=== PATIENT | female | born 1980 | race African-American/Black ===

== ENCOUNTER 2019-01-18 12:37 | Emergency (ER) | payer OTHER ==
[2019-01-18 13:00] VITALS: BMI 52.4
--- NOTE | 2019-01-18 13:25 | PDOC ---
History of Present Illness - General Chief Complaint: Vaginal Bleeding Stated Complaint: VAGINAL BLEEDING Time Seen by Provider: 01/18/19 13:16 History Source: Patient Past History - Past Medical History Allergies/Adverse Reactions: Allergies Allergy/AdvReac Type Severity Reaction Status Date / Time No Known Allergies Allergy Verified 01/18/19 13:00 Home Medications: Ambulatory Orders Ferrous Sulfate/Vit C/FA [Folitab 500 Caplet -] 1 each PO DAILY #30 tablet.er Ketorolac Tromethamine [Toradol] 10 mg PO BID PRN #8 tablet 07/23/16 COPD: No Diabetes: Yes HTN: Yes - Suicide/Smoking/Psychosocial Hx Smoking History: Never smoked Information on smoking cessation initiated: No Hx Alcohol Use: No Drug/Substance Use Hx: No Substance Use Type: None Review of Systems - Review of Systems Constitutional: No: Chills, Fever ABD/GI: Yes: Abdominal cramping. No: Nausea, Vomiting : No: Dysuria *Physical Exam - Vital Signs Last Vital Signs Temp Pulse Resp BP Pulse Ox 98.2 F 72 19 138/78 98 01/18/19 12:57 01/18/19 12:57 01/18/19 12:57 01/18/19 12:57 01/18/19 12:57 - Physical Exam General Appearance: Yes: Appropriately Dressed. No: Apparent Distress HEENT: positive: Normal Voice Neck: positive: Supple Respiratory/Chest: negative: Respiratory Distress Gastrointestinal/Abdominal: positive: Soft. negative: Tender Integumentary: positive: Dry, Warm Neurologic: positive: Fully Oriented, Alert, Normal Mood/Affect ED Treatment Course - LABORATORY CBC & Chemistry Diagram: 01/18/19 14:00 01/18/19 14:00 Medical Decision Making - Medical Decision Making 01/18/19 13:23 38 yo F, morbid obesity, NIDDM, irregular menses, here with menorrhagia. Patient states she was given depo a month ago, which did improve her bleeding, but for the past 6 days has been bleeding heavily, currently using 8-10 pads in a 24-hour period. Also reports intermittent abd cramping intermittently but no sig pain now. Has had weakness in the past but not currently. Denies fatigue, SOB or syncope. No h/o anemia or transfusion. States she was sent for an ultrasound a month ago, but was not able to make it to appointment See exam Persistent menorrhagia despite depot 1 month ago H/o irreg menses Stable and well polo w/ unremarkable exam -will check crit given duration of bleed and discuss dispo w/ pt's REGULATOR MECHANIC, Dr Mullins 01/18/19 13:[address] Mullins who now informs me that patient was due to have a D&C hysteroscopy last month, but never showed up. M.D. requesting transvaginal ultrasound in ED and states patient can follow up in office 01/18/19 15:35 BG 317, no gap. Pt is a NIDDM and states her BG usually runs 200s-300s. Asx at this time. Declines IVF/IV insulin. Consents to SQ insulin only 01/18/19 16:19 Pt now states she took her oral hypoglycemic meds prior to coming to ED. Fingerstick now 268. Will hold off on insulin. Of note, rest of labs and ultrasound unremarkable. Stable for discharge to follow-up with her REGULATOR MECHANIC 01/18/19 16:22 Labs and US unremarkable. Pt stable for dc to f/u with her REGULATOR MECHANIC *DC/Admit/Observation/Transfer Diagnosis at time of Disposition: Dysfunctional uterine bleeding, Hyperglycemia - Discharge Dispostion Disposition: HOME Condition at time of disposition: Good - Referrals Referrals: Donis Lara MD [Primary Care Provider] - - Patient Instructions Additional Instructions: You were given a copy of your labs and ultrasound. Your blood type is O+ Please follow-up with your REGULATOR MECHANIC - Post Discharge Activity
--- NOTE | 2019-01-18 13:54 | PDOC ---
*Physical Exam - Vital Signs Last Vital Signs Temp Pulse Resp BP Pulse Ox 98.2 F 72 19 138/78 98 01/18/19 12:57 01/18/19 12:57 01/18/19 12:57 01/18/19 12:57 01/18/19 12:57 ED Treatment Course - LABORATORY CBC & Chemistry Diagram: 01/18/19 14:00 01/18/19 14:00 Medical Decision Making - Medical Decision Making 01/18/19 13:54 Pt seen by Midlevel Provider under my direct supervision Ancillary studies reviewed I agree with plan as outlined by Midlevel Provider *DC/Admit/Observation/Transfer Diagnosis at time of Disposition: Dysfunctional uterine bleeding, Hyperglycemia - Discharge Dispostion Disposition: HOME Condition at time of disposition: Good - Referrals Referrals: Donis Lara MD [Primary Care Provider] - - Patient Instructions Additional Instructions: You were given a copy of your labs and ultrasound. Your blood type is O+ Please follow-up with your BALL TRUING MACHINE OPERATOR - Post Discharge Activity
[2019-01-18 14:15] LABS: BASO % 1.4 % (0-2.0); EOS % 1.6 % (0-4.5); HEMOGLOBIN 12.6 GM/dL (10.7-15.3); MCH 26.1 pg (25.7-33.7); MCHC 32.4 g/dl (32.0-36.0); MEAN CELL VOLUME 80.6 fl (80-96); MEAN PLT VOLUME 8.5 fl (7.5-11.1); MONO % 6.9 % (3.8-10.2); NEUT % 53.1 % (42.8-82.8); PLATELET COUNT 368 K/MM3 (134-434); RBC 4.84 M/mm3 (3.60-5.2); RDW 15.4 % (11.6-15.6); WHITE BLOOD COUNT 5.8 K/mm3 (4.0-10.0)
[2019-01-18 14:27] LABS: HCG,QUALITATIVE URINE Negative
[2019-01-18 14:42] LABS: EPI CELLS 1.1 /HPF (0-5/HPF); URINE APPEARANCE CLEAR; URINE BACTERIA 8.3 /hpf (NEGATIVE); URINE BILIRUBIN NEGATIVE (NEGATIVE); URINE CASTS 2 /lpf (0-8); URINE COLOR YELLOW; URINE GLUCOSE (UA) 3+ (NEGATIVE); URINE KETONE 1+ (NEGATIVE); URINE LEUK ESTERASE NEGATIVE (NEGATIVE); URINE NITRITE NEGATIVE (NEGATIVE); URINE PROTEIN NEGATIVE (NEGATIVE); URINE RBC 3 /hpf (0-4); URINE UROBILINOGEN 0.2 mg/dL (0.2-1.0); URINE WBC 1 /hpf (0-5)
[2019-01-18 14:48] LABS: ALBUMIN 3.4 g/dl (3.4-5.0); ALK PHOS 64 U/L (45-117); ANION GAP 5 MMOL/L (8-16); BILIRUBIN,TOTAL 0.5 mg/dL (0.2-1); BLOOD UREA NITROGEN 13 mg/dL (7-18); CALCIUM 8.8 mg/dL (8.5-10.1); CHLORIDE 105 mmol/L (98-107); CO2 27 mmol/L (21-32); CREATININE 0.7 mg/dL (0.55-1.3); POTASSIUM 4.1 mmol/L (3.5-5.1); SGOT/AST < 3 U/L (15-37); SGPT/ALT 10 U/L (13-61); SODIUM 137 mmol/L (136-145); TOT PROT 6.9 g/dl (6.4-8.2)
[2019-01-18 14:56] LABS: URINE CRYSTALS NONE SEEN /hpf
[2019-01-18 15:27] LABS: GLUCOSE,RANDOM 317 mg/dL (74-106)
[2019-01-18] MEDS ORDERED: INSULIN REGULAR HUMAN 100 UNITS/ML *VIAL SQ ONE (15:36)
[2019-01-18] MEDS ORDERED: INSULIN (NOVOLOG) ASPART 100 UNITS/ML 10ML VIAL ONE (15:46)
[2019-01-18 16:38] VITALS: BP 115/67; PULSE 79; TEMP 98.1
== END 2019-01-18 16:40 | disposition home or self-care (01) ==
LOC: JER 12:37
DX: N93.8 Other specified abnormal uterine and vaginal bleeding (principal); E11.65 Type 2 diabetes mellitus with hyperglycemia; E66.01 Morbid (severe) obesity due to excess calories; I10 Essential (primary) hypertension
CPT/HCPCS: 36415; 76830-TC; 80053; 81003; 82962; 84703; 85025; 86850; 86900; 86901; 99283-25

== ENCOUNTER 2019-01-26 14:01 | Day surgery (SDC) | payer OTHER ==
[2019-01-24 16:05] VITALS: BMI 51.2
--- NOTE | 2019-01-26 16:06 | HP ---
Admitting History and Physical - Admission Chief Complaint: Abnormal vaginal bleeding History of Present Illness: 38 yo Para 0, obese patient with h/o prolonged and heavy menses, is pre op for D &C hysteroscopy. History Source: Patient Limitations to Obtaining History: No Limitations - Past Medical History ...LMP Comment: 3 MONTHS OF BLEEDING ...Para: 0 - Past Surgical History Past Surgical History: Yes: None - Smoking History Smoking history: Current every day smoker Have you smoked in the past 12 months: Yes - Alcohol/Substance Use Hx Alcohol Use: Yes (OCCASIONAL) Home Medications - Allergies Allergies/Adverse Reactions: Allergies Allergy/AdvReac Type Severity Reaction Status Date / Time No Known Allergies Allergy Verified 01/26/19 15:13 - Home Medications Home Medications: Ambulatory Orders Metformin HCl [Metformin HCl ER] 1,000 mg PO BID 01/18/19 Aspirin Coated [Ecotrin -] 81 mg PO DAILY 01/24/19 Cetirizine HCl [Zyrtec -] 10 mg PO DAILY 01/24/19 Glyburide [Diabeta -] 2.5 mg PO BID 01/24/19 Losartan Potassium [Cozaar] 25 mg PO DAILY 01/24/19 Ibuprofen [Motrin -] 800 mg PO PRN 01/26/19 Family Disease History - Family Disease History Family History: Unremarkable Review of Systems - Review of Systems Constitutional: reports: No Symptoms HENT: reports: No Symptoms Neck: reports: No Symptoms Cardiovascular: reports: No Symptoms Respiratory: reports: No Symptoms Genitourinary: reports: Vaginal Bleeding Breasts: reports: No Symptoms Reported Neurological: reports: No Symptoms Endocrine: reports: Unexplained Weight Gain Psychiatric: reports: No Symptoms Pain Intensity: 0 Physical Examination Vital Signs: Vital Signs Temperature 98 F 01/26/19 14:56 Pulse Rate 97 H 01/26/19 14:56 Respiratory Rate 18 01/26/19 14:56 Blood Pressure 123/77 01/26/19 14:56 O2 Sat by Pulse Oximetry (%) 100 01/26/19 14:57 Constitutional: No: No Distress Eyes: Yes: Conjunctiva Clear HENT: Yes: Atraumatic Neck: Yes: Supple Cardiovascular: Yes: Regular Rate and Rhythm Respiratory: Yes: Regular Musculoskeletal: Yes: WNL Extremities: Yes: WNL Neurological: Yes: Alert, Oriented ...Motor Strength: WNL Psychiatric: Yes: Alert, Oriented Labs: CBC, BMP 01/26/19 14:16 Assessment/Plan Menorrhagia Obesity Pre op for D&C Hysteroscopy Consent signed Anesthesia to see patient
[2019-01-26] MEDS ORDERED: MIDAZOLAM HCL 2 MG/2 ML SINGLE DOSE VIAL ONE (17:56)
--- NOTE | 2019-01-26 18:33 | OP ---
Operative Note - Note: Operative Date: 01/26/19 Pre-Operative Diagnosis: Abnormal uterine bleeding Operation: D&C Hysteroscopy Post-Operative Diagnosis: Same as Pre-op Surgeon: Shelby Mullins Anesthesia: Spinal Specimens Removed: Endometrial curettings Estimated Blood Loss (mls): 5 Operative Report Dictated: Yes
--- NOTE | 2019-01-26 19:00 | OP ---
DATE OF OPERATION: 01/26/2019 PREOPERATIVE DIAGNOSIS: Abnormal uterine bleeding. POSTOPERATIVE DIAGNOSIS: Abnormal uterine bleeding. PROCEDURE: Dilatation and curettage, hysteroscopy. SURGEON: Shelby Mullins MD ANESTHESIA: Spinal. COMPLICATIONS: None. ESTIMATED BLOOD LOSS: 5 mL. PROCEDURE: The patient was taken to the operating room where spinal anesthesia was administered. Patient was then placed in lithotomy position. She was then prepped and draped in proper sterile fashion. A weighted speculum was placed in the vagina. The anterior lip of the cervix was grasped with a single-toothed tenaculum. The uterus was sounded to 6 cm. Then the 5-mm hysteroscope was then gently introduced into the uterine cavity. The cavity was visualized. The ostia were not visualized. There were multiple polyps noted. Then sharp curettage was then performed. The instruments were then removed. The patient was taken out of lithotomy position. She was taken to PACU in stable condition. PATHOLOGY: Endometrial curettings. Janice SANTOS/[id number] MTDD
[2019-01-26] MEDS ORDERED: PROMETHAZINE HCL 25 MG/1 ML VIAL IVPUSH PRN (19:19)
[2019-01-26] MEDS ORDERED: LACTATED RINGERS SOLUTION 1,000 ML IV SCH (19:30)
[2019-01-26 20:41] VITALS: BP 117/72; PULSE 84; TEMP 98
--- NOTE | 2019-01-30 14:27 | PATH ---
Surgical Pathology Report Patient Name: LINDSEY RODRIGUEZ [facility]. Rec. #: [id number] /Age/Gender: 1980 (Age: 38) / F Account: [id number] Location: [facility] SURGICAL Taken: 01/26/2019 Received: 01/27/2019 Reported: 01/30/2019 Physicians: Shelby Mullins M.D. Specimen(s) Received ENDOMETRIAL CURETTINGS Clinical History Menorrhagia Final Diagnosis ENDOMETRIAL CURETTINGS, DILATION AND CURETTAGE: FRAGMENTS OF WEAKLY PROLIFERATIVE ENDOMETRIUM WITH MILD CHRONIC ENDOMETRITIS, FOCAL GLANDULAR AND STROMAL BREAKDOWN. FRAGMENTS OF BENIGN CERVICAL TISSUE. Electronically Signed Rena Camp M.D. Gross Description Received in formalin labeled "endometrial curettings," is a 1.8 x 1.3 x 0.2 cm aggregate of montano-brown soft tissue fragments. The formalin is filtered and the specimen is entirely submitted in one cassette. /01/27/2019 saudi01/27/2019
== END 2019-01-26 22:51 | disposition home or self-care (01) ==
LOC: JASU-SURG 14:01 → J8W 20:28 → JASU-SURG 22:51
PROVIDERS: ATTEND Obstetrics & Gynecology
PROC: 0UDB7ZX Extraction of Endometrium, Via Natural or Artificial Opening, Diagnostic (ICD-10-PCS; principal; 2019-01-26 15:30)
PROC: 0UJD8ZZ Inspection of Uterus and Cervix, Via Natural or Artificial Opening Endoscopic (ICD-10-PCS; 2019-01-26 15:30)
DX: N93.8 Other specified abnormal uterine and vaginal bleeding (principal); E66.01 Morbid (severe) obesity due to excess calories; E11.9 Type 2 diabetes mellitus without complications; Z79.84 Long term (current) use of oral hypoglycemic drugs; Z72.0 Tobacco use; Z68.43 Body mass index [BMI] 50.0-59.9, adult
CPT/HCPCS: 36415; 82947; 84703; 86850; 86900; 86901; 88305-TC; 94760

== ENCOUNTER 2019-07-02 01:45 | Emergency (ER) | payer OTHER ==
--- NOTE | 2019-07-02 02:06 | PDOC ---
History of Present Illness - General Stated Complaint: MIGRAINE/VOMITING Time Seen by Provider: 07/02/19 02:03 History Source: Patient Exam Limitations: No Limitations - History of Present Illness Initial Comments: Pt is a 39 yo F, with PMH of morbid obesity, HTN, HLD, and NIDDM, who is presenting with complaints of headache, 3 days after receiving epidural pain management. Pt states she has chronic lower back pain, and received an epidural shot from her pain management physician (Dr. Otoole -- [phone]). Pt states the headache was gradual in onset, and is worse over the back of her head and when she sits up. Pt went to [facility] yesterday, where her blood work and CT scan "were normal". Pt has nausea and NBNB vomiting today. Pt has been taking tylenol and excedrin, with minimal relief. Pt denies any fevers/ chills, photo/phonophobia, vision changes, syncope, chest pain, palpitations, SOB, abdominal pain, urinary symptoms, diarrhea/constipation, numbness/weakness/ tingling in her extremities, or leg swelling. Allergies: NKDA PCP: Dr. Donis Blanton Social: Pt denies any cigarette, alcohol, or drug use. Pt denies any recent travel or sick contacts. Surgical: D&C due to heavy vaginal bleeding (01/2019) Family: no relevant history. 07/02/19 03:32 Past History - Travel Traveled outside of the country in the last 30 days: No Close contact w/someone who was outside of country & ill: No - Past Medical History Allergies/Adverse Reactions: Allergies Allergy/AdvReac Type Severity Reaction Status Date / Time No Known Allergies Allergy Verified 07/02/19 02:12 Home Medications: Ambulatory Orders Metformin HCl [Metformin HCl ER] 1,000 mg PO BID 01/18/19 Aspirin Coated [Ecotrin -] 81 mg PO DAILY 01/24/19 Cetirizine HCl [Zyrtec -] 10 mg PO DAILY 01/24/19 Glyburide [Diabeta -] 2.5 mg PO BID 01/24/19 Losartan Potassium [Cozaar] 25 mg PO DAILY 01/24/19 Ibuprofen [Motrin -] 800 mg PO PRN 01/26/19 COPD: No Diabetes: Yes HTN: Yes Hypercholesterolemia: Yes - Psycho Social/Smoking Cessation Hx Smoking History: Current every day smoker Have you smoked in the past 12 months: Yes Hx Alcohol Use: Yes (OCCASIONAL) Drug/Substance Use Hx: No Substance Use Type: None Review of Systems - Review of Systems Able to Perform ROS?: Yes Is the patient limited Italian proficient: No Constitutional: Yes: Weight Stable. No: Chills, Diaphoresis, Fever, Loss of Appetite, Malaise, Weakness HEENTM: No: Blurred Vision, Recent change in vision, Double Vision, Nose Congestion, Throat Pain, Throat Swelling, Difficulty Swallowing Respiratory: No: Cough, Orthopnea, Shortness of Breath Cardiac (ROS): No: Chest Pain, Edema, Irregular Heart Rate, Lightheadedness, Palpitations, Syncope, Chest Tightness ABD/GI: Yes: Nausea, Vomiting. No: Abdominal Distended, Constipated, Diarrhea, Poor Appetite, Poor Fluid Intake, Indigestion, Abdominal cramping : No: Burning, Dysuria, Frequency, Pain, Urgency Musculoskeletal: No: Back Pain, Joint Pain, Joint Swelling, Muscle Pain, Muscle Weakness, Neck Pain Integumentary: No: Rash Neurological: Yes: Headache. No: Numbness, Paresthesia, Seizure, Weakness, Unsteady Gait, Ataxia, Dizziness Psychiatric: No: Sleep Pattern Change, Change in Appetite Endocrine: No: Increased Urine, Change in Weight Hematologic/Lymphatic: No: Anemia, Blood Clots, Easy Bleeding, Easy Bruising All Other Systems: Reviewed and Negative *Physical Exam - Physical Exam Comments: Vitals stable, pt afebrile. Pt in NAD, ambulatory in ED; morbidly obese body habitus. Pt alert and oriented x3. rack carrier generally intact, muscular strength and sensation intact. Cerebellar exam WNL. No midline spinal tenderness, step-offs, or crepitus. LP site with no erythema, drainage, or TTP. Head normocephalic, atraumatic. Eyes PERRLA, EOMI. Oropharynx without erythema or exudates, no LAD b/l. No nasal congestion. Hearing intact. Clear heart sounds, S1/S2, no JVD, b/l pedal edema, or heart murmur. Clear lung sounds, no respiratory distress, wheezes, crackles, or accessory muscle use. No abdominal or CVA tenderness to palpation, no rebound, no guarding. Abdomen soft, non-distended, and with normoactive bowel sounds. Skin without jaundice or rash. 07/02/19 03:38 Medical Decision Making - Medical Decision Making Pt was seen at bedside, also will be seen by attending Dr. Cash. Pt presenting with headache, 3 days post epidural. No fevers, drainage/erythema/TTP at lumbar site, no weakness/numbness in extremities. Unlikely epidural abscess or meningitis. Pt had negative CT head scan and labwork done yesterday, with gradual onset headache, unlikely SAH. Provided 1 L IV NS, 10 mg IV reglan, 25 mg IV benadryl, and 15 mg IV toradol for improvement of headache and nausea. Will continue to reassess pt and monitor for symptomatic improvement. 07/02/19 03:39 Pt states interventions improved pain, and was able to sit upright with no pain. Pt with no further vomiting, ambulatory in ED. Strict return precautions provided with pt understanding. 07/02/19 03:41 Discharge - Discharge Information Problems reviewed: Yes Clinical Impression/Diagnosis: Headache Qualifiers: Headache type: unspecified Headache chronicity pattern: acute headache Intractability: not intractable Qualified Code(s): R51 - Headache Condition: Improved Disposition: HOME - Admission No - Follow up/Referral Referrals: Donis Lara MD [Primary Care Provider] - - Patient Discharge Instructions Patient Printed Discharge Instructions: DI for Post-Spinal Puncture Headache, DI for Lumbar Epidural Injection Additional Instructions: You were seen in the ER today for headache, which improved after medications. Please follow-up with your primary care doctor within 1-2 days to discuss your visit and make sure your symptoms have improved. Please return to the ER if you have any worsening pain, development of fevers or chills, loss of consciousness , inability to tolerate food or fluids, or any other concerns. - Post Discharge Activity
[2019-07-02] MEDS ORDERED: METOCLOPRAMIDE HCL INJECTION 10 MG/2 ML VIAL IVPUSH ONE (02:08)
[2019-07-02] MEDS ORDERED: ACETAMINOPHEN 1000 MG/100 ML VIAL (NON FORMULARY) IVPB ONE (02:08)
[2019-07-02] MEDS ORDERED: SODIUM CHLORIDE 1,000 ML IV STA (02:08)
[2019-07-02 02:13] VITALS: BP 126/83; PULSE 71; TEMP 98.3; BMI 49.9
[2019-07-02] MEDS ORDERED: KETOROLAC TROMETHAMINE 15 MG/ML VIAL IM ONE (02:15)
[2019-07-02] MEDS ORDERED: KETOROLAC TROMETHAMINE 15 MG/ML VIAL IVPUSH ONE (02:27)
[2019-07-02] MEDS ORDERED: METOCLOPRAMIDE HCL INJECTION 10 MG/2 ML VIAL ONE (02:28)
[2019-07-02] MEDS ORDERED: KETOROLAC TROMETHAMINE 15 MG/ML VIAL ONE (02:29)
--- NOTE | 2019-07-02 02:31 | PDOC ---
Attending Attestation - Resident Resident Name: Janet Begum - ED Attending Attestation I have performed the following: I have examined & evaluated the patient, The case was reviewed & discussed with the resident, I agree w/resident's findings & plan - HPI HPI: 07/02/19 02:30 Pt comes with migraine CODY 3 days after an epidural injection by her pain specialist. Pt thinks that she may have a CSF leak. Headaches are worse when she sits up. - Physicial Exam PE: 07/02/19 02:34 Pt has normal heart and lungs and afebrile, and no rash, normal HEENT/pupils Pt has normal abdominal exam. Low back we can see where the needle went in for the epidural. - Medical Decision Making 07/02/19 02:36 Pt will be treated with analgesics; no labs or CT scan because she had all that done yesterday at [facility] 07/02/19 04:02 Pt feels great and she is ready to go home.
[2019-07-02] MEDS ORDERED: LIDOCAINE 5% TOPICAL PATCH TP ONE (03:27)
[2019-07-02] MEDS ORDERED: LIDOCAINE 5% TOPICAL PATCH ONE (03:35)
[2019-07-02] MEDS ORDERED: LIDOCAINE PATCH REMOVAL MC SCH (22:00)
== END 2019-07-02 03:42 | disposition home or self-care (01) ==
LOC: JER 01:45
PROC: 3E033GC Introduction of Other Therapeutic Substance into Peripheral Vein, Percutaneous Approach (ICD-10-PCS; principal; 2019-07-02)
PROC: 3E033NZ Introduction of Analgesics, Hypnotics, Sedatives into Peripheral Vein, Percutaneous Approach (ICD-10-PCS; 2019-07-02)
PROC: 3E0333Z Introduction of Anti-inflammatory into Peripheral Vein, Percutaneous Approach (ICD-10-PCS; 2019-07-02)
DX: R51 Headache (principal); G97.1 Other reaction to spinal and lumbar puncture; I10 Essential (primary) hypertension; E78.00 Pure hypercholesterolemia, unspecified; Z79.84 Long term (current) use of oral hypoglycemic drugs; Z79.82 Long term (current) use of aspirin; F17.210 Nicotine dependence, cigarettes, uncomplicated
CPT/HCPCS: 96374; 96375; 99282-25; J7030

== ENCOUNTER 2019-07-03 16:31 | Emergency (ER) | payer OTHER ==
[2019-07-03 16:39] VITALS: BP 127/68; PULSE 90; TEMP 98.2; BMI 50.8
--- NOTE | 2019-07-03 17:17 | PDOC ---
Attending Attestation - Resident Resident Name: EdilbertoAmrikNuno - ED Attending Attestation I have performed the following: I have examined & evaluated the patient, The case was reviewed & discussed with the resident, I agree w/resident's findings & plan, Exceptions are as noted - HPI HPI: 07/03/19 17:15 39-year-old female had an epidural placed on June 27 for pain management and has had persistent headaches since the time. She was seen last evening in our emergency department and received Toradol, affirmative, IV fluids, but she states that did not help. She does have an appointment this week to follow-up with the pain clinic she saw last week - Physicial Exam PE: 07/03/19 17:18 wnwd 39 yo female p/w persistent headache following epidural injection at the pain management clinic head ncat eyes [place] eomi neck no nuchal rigidity lungs cta b/l cvs [id number] abd protuberant ext no deformities skin warm and dry neuro axox3,ambulatory - Medical Decision Making 07/03/19 17:19 pt states she was told she may need a blood patch by an anesthesiologist 07/03/19 18:22 bgm 187 pt eloped
[2019-07-03] MEDS ORDERED: DEXAMETHASONE SOD PHOSPHATE 10 MG/1 ML VIAL IM ONE (17:34)
--- NOTE | 2019-07-03 17:38 | PDOC ---
History of Present Illness - General Chief Complaint: Headache Stated Complaint: Headache, BLOOD sugar problem Time Seen by Provider: 07/03/19 16:56 History Source: Patient Exam Limitations: No Limitations - History of Present Illness Initial Comments: 07/03/19 17:43 HPI: 39yo F with PMH of morbid obesity, HTN, HLD, and NIDDM, who is presenting with complaints of continued headache that has not resolved since ED visit yesterday. She presents asking for a blood patch and refusing any other medications because "they do not work." Headache started 06/28, the day after receiving epidural pain management. Pt states she has chronic lower back pain, and received an epidural shot from her pain management physician (Dr. Otoole -- [phone]). Pt states the headache was gradual in onset, and is worse over the back of her head and when she sits up. Pt went to [facility] 07/01, where her blood work and CT scan "were normal ". Pt has continued nausea and NBNB vomiting today. Pt has been taking tylenol and excedrin, with minimal relief. Pt denies any fevers/chills, photo/ phonophobia, vision changes, syncope, chest pain, palpitations, SOB, abdominal pain, urinary symptoms, diarrhea/constipation, numbness/weakness/tingling in her extremities, or leg swelling. Allergies: NKDA PCP: Dr. Donis Blanton Social: Pt denies any cigarette, alcohol, or drug use Pt denies any recent travel or sick contacts Surgical: D&C due to heavy vaginal bleeding (01/2019) Family: no relevant history Past History - Travel Traveled outside of the country in the last 30 days: No Close contact w/someone who was outside of country & ill: No - Past Medical History Allergies/Adverse Reactions: Allergies Allergy/AdvReac Type Severity Reaction Status Date / Time No Known Allergies Allergy Verified 07/03/19 16:39 Home Medications: Ambulatory Orders Metformin HCl [Metformin HCl ER] 1,000 mg PO BID 01/18/19 Aspirin Coated [Ecotrin -] 81 mg PO DAILY 01/24/19 Cetirizine HCl [Zyrtec -] 10 mg PO DAILY 01/24/19 Glyburide [Diabeta -] 2.5 mg PO BID 01/24/19 Losartan Potassium [Cozaar] 25 mg PO DAILY 01/24/19 Ibuprofen [Motrin -] 800 mg PO PRN 01/26/19 COPD: No Diabetes: Yes HTN: Yes Hypercholesterolemia: Yes Other medical history: back problems - Psycho Social/Smoking Cessation Hx Smoking History: Current every day smoker Have you smoked in the past 12 months: Yes Number of Cigarettes Smoked Daily: 5 Information on smoking cessation initiated: Yes Hx Alcohol Use: No Drug/Substance Use Hx: No Substance Use Type: None Review of Systems - Review of Systems Able to Perform ROS?: Yes Is the patient limited Swedish proficient: Yes Constitutional: No: Chills, Fever, Loss of Appetite, Malaise, Weakness HEENTM: No: Eye Pain, Blurred Vision, Nose Pain, Tinnitus, Throat Pain, Throat Swelling Respiratory: No: Cough, Shortness of Breath, Stridor, Wheezing Cardiac (ROS): No: Chest Pain, Edema, Irregular Heart Rate, Lightheadedness, Palpitations, Syncope, Chest Tightness ABD/GI: Yes: Nausea, Vomiting. No: Constipated, Diarrhea : No: Burning, Dysuria, Discharge, Pain Musculoskeletal: No: Back Pain, Muscle Pain, Muscle Weakness, Neck Pain Integumentary: No: Erythema, Flushing, Pruritus, Rash Neurological: No: Headache, Numbness, Tingling, Weakness Psychiatric: No: Emotional Problems, Mood Swings, Change in Appetite Endocrine: No: Excessive Sweating, Increased Thirst, Increased Urine, Change in Weight Hematologic/Lymphatic: No: Anemia, Blood Clots, Easy Bleeding All Other Systems: Reviewed and Negative *Physical Exam - Vital Signs Last Vital Signs Temp Pulse Resp BP Pulse Ox 98.2 F 90 19 127/68 97 07/03/19 16:37 07/03/19 16:37 07/03/19 16:37 07/03/19 16:37 07/03/19 16:37 - Physical Exam Comments: 07/03/19 17:50 Vitals stable, pt afebrile and HDS NAD, ambulatory in ED, morbidly obese body habitus No midline spinal tenderness, step-offs, or crepitus. LP site with no erythema, drainage, or TTP. Head normocephalic, atraumatic. Eyes PERRLA, EOMI. NSR, S1/S2, no murmur appreciated Clear lung sounds, no respiratory distress, wheezes, crackles, or accessory muscle use No abdominal or CVA tenderness to palpation, no rebound, no guarding. Abdomen soft, non-distended, and with normoactive bowel sounds Skin without jaundice or rash pump installation and servicer grossly intact, MAEE, alert and oriented x3 Medical Decision Making - Medical Decision Making 07/03/19 17:38 39yo F with PMH of morbid obesity, HTN, HLD, and NIDDM, who is presenting with complaints of continued headache that has not resolved since ED visit yesterday persistent over the past week. -BGM -10mg Decadron IM 07/03/19 18:10 -Patient missing for re-evaluation 07/03/19 18:43 -Patient still missing from the department, holding, fast track, waiting room Eloped Discharge - Discharge Information Problems reviewed: Yes Clinical Impression/Diagnosis: Headache Qualifiers: Headache type: unspecified Headache chronicity pattern: unspecified pattern Intractability: intractable Qualified Code(s): R51 - Headache Condition: Stable Disposition: HOME - Admission No - Follow up/Referral Referrals: Donis Lara MD [Primary Care Provider] - - Patient Discharge Instructions Additional Instructions: Continue to take OTC pain medications as directed on the package labels for your pain. Please follow up with the provider who placed your epidural injection tomorrow as scheduled. They can provide you with more information regarding a blood patch. Return to the ED with any new or concerning symptoms including but not limited to; changes in your vision, fever/chills, neck stiffness, or inability to tolerate food by mouth. - Post Discharge Activity
[2019-07-03] MEDS ORDERED: DEXAMETHASONE SOD PHOSPHATE 10 MG/1 ML VIAL ONE (17:48)
== END 2019-07-03 18:20 | disposition left against medical advice (07) ==
LOC: JER 16:31
PROC: 3E0233Z Introduction of Anti-inflammatory into Muscle, Percutaneous Approach (ICD-10-PCS; principal; 2019-07-03)
DX: R51 Headache (principal); I10 Essential (primary) hypertension; E11.9 Type 2 diabetes mellitus without complications; Z79.84 Long term (current) use of oral hypoglycemic drugs; E78.00 Pure hypercholesterolemia, unspecified; E66.01 Morbid (severe) obesity due to excess calories; Z68.43 Body mass index [BMI] 50.0-59.9, adult; Z87.39 Personal history of other diseases of the musculoskeletal system and connective tissue
CPT/HCPCS: 82962; 96372; 99281-25; J1100

== ENCOUNTER 2019-07-06 12:24 | Emergency (ER) | payer OTHER ==
[2019-07-06 12:33] VITALS: BMI 50.8
[2019-07-06] MEDS ORDERED: ACETAMINOPHEN/CAFFEINE/BUTALBITAL 1 TAB PO ONE (13:12)
[2019-07-06] MEDS ORDERED: SODIUM CHLORIDE 0.9% 1000 ML INFUS.BAG IV ONE (13:13)
[2019-07-06 13:29] VITALS: TEMP 97.7
--- NOTE | 2019-07-06 13:48 | PDOC ---
Documentation entered by Shelly Oliveira SCRIBE, acting as scribe for Benny Peña MD. Benny Peña MD: This documentation has been prepared by the Tee cooper Sammi, SCRIBE, under my direction and personally reviewed by me in its entirety. I confirm that the documentation accurately reflects all work, treatment, procedures, and medical decision making performed by me. History of Present Illness - General Chief Complaint: Headache Stated Complaint: FOLLOW UP Time Seen by Provider: 07/06/19 13:04 - History of Present Illness Initial Comments: 07/06/19 13:15 The patient is a 39 year old female who presents for evaluation of progressively worsening headache, nausea, and vomiting since receiving an epidural injection to the lumbar area on 06/27/19 by her pain management doctor. The patient reports her headache is completely positional. Of note, the patient was evaluated in our ED twice several days ago. PMH: DM, HTN, high cholesterol PCP: zuri Past History - Past Medical History Allergies/Adverse Reactions: Allergies Allergy/AdvReac Type Severity Reaction Status Date / Time No Known Allergies Allergy Verified 07/06/19 12:29 Home Medications: Ambulatory Orders Metformin HCl [Metformin HCl ER] 1,000 mg PO BID 01/18/19 Aspirin Coated [Ecotrin -] 81 mg PO DAILY 01/24/19 Cetirizine HCl [Zyrtec -] 10 mg PO DAILY 01/24/19 Glyburide [Diabeta -] 2.5 mg PO BID 01/24/19 Losartan Potassium [Cozaar] 25 mg PO DAILY 01/24/19 Ibuprofen [Motrin -] 800 mg PO PRN 01/26/19 COPD: No Diabetes: Yes (NIDM) HTN: Yes Hypercholesterolemia: Yes - Immunization History Immunization Up to Date: Yes - Psycho Social/Smoking Cessation Hx Smoking History: Current every day smoker Have you smoked in the past 12 months: No Number of Cigarettes Smoked Daily: 10 Information on smoking cessation initiated: No Hx Alcohol Use: No Drug/Substance Use Hx: No Substance Use Type: None Review of Systems - Review of Systems Comments:: 07/06/19 13:16 ROS: A complete review of 10 out of 10 review of systems is taken and is negative apart from what is previously mentioned below and in the HPI. *Physical Exam - Vital Signs Last Vital Signs Temp Pulse Resp BP Pulse Ox 98.2 F 64 17 139/93 99 07/06/19 12:29 07/06/19 12:29 07/06/19 12:29 07/06/19 12:29 07/06/19 12:29 ED Treatment Course - LABORATORY CBC & Chemistry Diagram: 07/06/19 14:00 07/06/19 14:00 Medical Decision Making - Medical Decision Making 07/06/19 13:48\ Anesthesia has been consulted for blood patch patient with positional headache status post epidural we will give Fioricet IV fluids check labs and coags 07/06/19 15:36 Status post blood patch patient feels much better sitting up eating drinking comfortably We will follow-up with your doctor this week Findings, the need for follow-up and strict return instructions discussed with patient. Discharge - Discharge Information Problems reviewed: Yes Clinical Impression/Diagnosis: Headache Qualifiers: Headache type: unspecified Headache chronicity pattern: unspecified pattern Intractability: intractable Qualified Code(s): R51 - Headache Condition: Good - Admission No - Follow up/Referral Referrals: Donis Lara MD [Primary Care Provider] - - Patient Discharge Instructions Patient Printed Discharge Instructions: Epidural Blood Patch Additional Instructions: Drink plenty of fluids. Take home medications as prescribed. Return to ED for any fever severe worsening symptoms or for any concerns. - Post Discharge Activity
[2019-07-06 15:09] LABS: BASO % 0.3 % (0-2.0); EOS % 1.3 % (0-4.5); HEMATOCRIT 40.3 % (32.4-45.2); HEMOGLOBIN 12.8 GM/dL (10.7-15.3); LYMPH % 40.6 % (8-40); MCH 25.8 pg (25.7-33.7); MCHC 31.9 g/dl (32.0-36.0); MEAN CELL VOLUME 80.9 fl (80-96); MEAN PLT VOLUME 8.9 fl (7.5-11.1); NEUT % 49.8 % (42.8-82.8); PLATELET COUNT 377 K/MM3 (134-434); RBC 4.98 M/mm3 (3.60-5.2); WHITE BLOOD COUNT 7.8 K/mm3 (4.0-10.0)
--- NOTE | 2019-07-06 15:15 | CONSULT ---
Consult - Past Surgical History Past Surgical History: Yes: None - Alcohol/Substance Use Hx Alcohol Use: No - Smoking History Smoking history: Current every day smoker Have you smoked in the past 12 months: No Aproximately how many cigarettes per day: 10 Home Medications - Allergies Allergies/Adverse Reactions: Allergies Allergy/AdvReac Type Severity Reaction Status Date / Time No Known Allergies Allergy Verified 07/06/19 12:29 - Home Medications Home Medications: Ambulatory Orders Metformin HCl [Metformin HCl ER] 1,000 mg PO BID 01/18/19 Aspirin Coated [Ecotrin -] 81 mg PO DAILY 01/24/19 Cetirizine HCl [Zyrtec -] 10 mg PO DAILY 01/24/19 Glyburide [Diabeta -] 2.5 mg PO BID 01/24/19 Losartan Potassium [Cozaar] 25 mg PO DAILY 01/24/19 Ibuprofen [Motrin -] 800 mg PO PRN 01/26/19 Physical Exam Vital Signs: Vital Signs Temperature 97.7 F 07/06/19 13:28 Pulse Rate 78 07/06/19 13:28 Respiratory Rate 17 07/06/19 12:29 Blood Pressure 104/71 07/06/19 13:28 O2 Sat by Pulse Oximetry (%) 99 07/06/19 13:28 Assessment/Plan Anesthesia consult in the ER History and physical exam done Pt has h/o Dm,HTN,morbid obesity and low back Ppain PSH Epidural for the LBP 4 times. Recent was 9 days ago with the headache ass with position,frontal and occipital. Not relieved with multiple pain meds and caffeine tablets. P/E Most suggestive of PDPH So blood patch explained. patient agreed. Procedure: under aseptic condition local anesthetic 1 percent injected at L3-4 space. Epidural space with TALAT at 6 cm. 15 ml of her own blood injected,patient laid flat. Examined in 30 minutes. patient feels fine. No headache in sitting position or on neck movement. A/P Patient can be discharged from the ER. She can take tylenol for pain on as needed bases. Lenora Pecae MD.
[2019-07-06 15:18] LABS: INR 0.96 (0.83-1.09); PROTHROMBIN TIME (PATIENT) 11.3 SEC (9.7-13.0)
[2019-07-06 15:21] LABS: ACTIVATED PTT 27.8 SECONDS (25.2-36.5)
[2019-07-06 15:33] LABS: ALBUMIN 3.4 g/dl (3.4-5.0); ALK PHOS 52 U/L (45-117); ANION GAP 6 MMOL/L (8-16); BILIRUBIN,TOTAL 0.5 mg/dL (0.2-1); BLOOD UREA NITROGEN 14.4 mg/dL (7-18); CHLORIDE 106 mmol/L (98-107); CO2 28 mmol/L (21-32); CREATININE 0.7 mg/dL (0.55-1.3); GLUCOSE,RANDOM 239 mg/dL (74-106); POTASSIUM 4.1 mmol/L (3.5-5.1); SGOT/AST < 3 U/L (15-37); SGPT/ALT 11 U/L (13-61); SODIUM 139 mmol/L (136-145); TOT PROT 6.6 g/dl (6.4-8.2)
[2019-07-06] MEDS ORDERED: ACETAMINOPHEN/CAFFEINE/BUTALBITAL 1 TAB ONE (16:08)
[2019-07-06 16:46] VITALS: BP 110/70; PULSE 80
== END 2019-07-06 16:15 | disposition home or self-care (01) ==
LOC: JER 12:24
PROC: 3E0337Z Introduction of Electrolytic and Water Balance Substance into Peripheral Vein, Percutaneous Approach (ICD-10-PCS; principal; 2019-07-06)
PROC: 3E0337Z Introduction of Electrolytic and Water Balance Substance into Peripheral Vein, Percutaneous Approach (ICD-10-PCS; 2019-07-06)
DX: R51 Headache (principal); E11.9 Type 2 diabetes mellitus without complications; I10 Essential (primary) hypertension; E78.5 Hyperlipidemia, unspecified; F17.210 Nicotine dependence, cigarettes, uncomplicated
CPT/HCPCS: 36415; 80053; 82962; 85025; 85610; 85730; 99283-25; J7030

== ENCOUNTER 2019-07-08 12:39 | Emergency (ER) | payer OTHER ==
[2019-07-08 12:58] VITALS: BP 114/77; PULSE 96; BMI 50.6
[2019-07-08] MEDS ORDERED: METOCLOPRAMIDE HCL INJECTION 10 MG/2 ML VIAL IVPUSH ONE (13:49)
--- NOTE | 2019-07-08 13:49 | PDOC ---
History of Present Illness - General Chief Complaint: Headache Stated Complaint: HEADACHE Time Seen by Provider: 07/08/19 13:37 History Source: Patient Exam Limitations: No Limitations - History of Present Illness Initial Comments: Dahlia Zaidi is a 39 yo F w a pmh of morbid obesity, HTN, HLD, and NIDDM who presents to the [facility] er with a headache. She reports she has had this headache for weeks and no medications have helped. She states the headache is positional in nature and that when she lies down she feels better but when she sits up or stands up it is worse. The patient states she received a blood patch two days ago and was told by the anesthesiologist to come back two days later if her pain is not gone. Her pain has not resolved and she nor returns requesting another blood patch. She refuses to accept any medications saying that she has tried all of them multiple times and they have not worked. She reports that she received a head CT for this headache which was negative. Per prior ED note "Headache started 06/28, the day after receiving epidural pain management. Pt states she has chronic lower back pain, and received an epidural shot from her pain management physician (Dr. Otoole -- [phone]). Pt states the headache was gradual in onset, and is worse over the back of her head and when she sits up. Pt went to [facility] 07/01, where her blood work and CT scan "were normal". Pt has continued nausea and NBNB vomiting today. Pt has been taking tylenol and excedrin, with minimal relief. Pt denies any fevers/ chills, photo/phonophobia, vision changes, syncope, chest pain, palpitations, SOB, abdominal pain, urinary symptoms, diarrhea/constipation, numbness/weakness/ tingling in her extremities, or leg swelling." - Patient confirms all of these details. PCP: Donis Lara Neurologist: None Allergies: NKA, NKDA Social Hx: Smoes 6 cigarettes/day, denies alcohol or illicit drug usage PSH: D&C due to heavy vaginal bleeding (01/2019) Past History - Past Medical History Allergies/Adverse Reactions: Allergies Allergy/AdvReac Type Severity Reaction Status Date / Time No Known Allergies Allergy Verified 07/06/19 12:29 Home Medications: Ambulatory Orders Metformin HCl [Metformin HCl ER] 1,000 mg PO BID 01/18/19 Aspirin Coated [Ecotrin -] 81 mg PO DAILY 01/24/19 Cetirizine HCl [Zyrtec -] 10 mg PO DAILY 01/24/19 Glyburide [Diabeta -] 2.5 mg PO BID 01/24/19 Losartan Potassium [Cozaar] 25 mg PO DAILY 01/24/19 Ibuprofen [Motrin -] 800 mg PO PRN 01/26/19 COPD: No Diabetes: Yes (NIDM) HTN: Yes Hypercholesterolemia: Yes - Immunization History Immunization Up to Date: No - Psycho Social/Smoking Cessation Hx Smoking History: Never smoked Have you smoked in the past 12 months: No Number of Cigarettes Smoked Daily: 10 Information on smoking cessation initiated: No Hx Alcohol Use: No Drug/Substance Use Hx: No Substance Use Type: None Review of Systems - Review of Systems Able to Perform ROS?: Yes Comments:: CONSTITUTIONAL: Absent: fever, no chills, no fatigue EYES: Absent: visual changes ENT: Absent: ear pain, no sore throat CARDIOVASCULAR: Absent: chest pain, no palpitations RESPIRATORY: Absent: cough, no SOB GI: Present: Nausea, vomiting Absent: abdominal pain, no constipation, no diarrhea GENITOURINARY: Absent: dysuria, no frequency, no hematuria MUSKULOSKELETAL: Absent: back pain, no arthralgia, no myalgia SKIN: Absent: rash NEURO: Present: headache *Physical Exam - Vital Signs Last Vital Signs Temp Pulse Resp BP Pulse Ox 96 H 18 114/77 8 L 07/08/19 12:55 07/08/19 12:55 07/08/19 12:55 07/08/19 12:55 - Physical Exam Comments: GENERAL: Morbidly obese. Well developed, well nourished. Awake and alert. No acute distress. HEENT: Normocephalic, atraumatic. PERRLA, EOMI. No conjunctival pallor. Sclera are non- icteric. Moist mucous membranes. Oropharynx is clear. NECK: Supple. Full ROM. No lymphadenopathy. CARDIOVASCULAR: Regular rate and rhythm. No murmurs, rubs, or gallops. Distal pulses are 2+ and symmetric. PULMONARY: No evidence of respiratory distress. Lungs clear to auscultation bilaterally. No wheezing, rales or rhonchi. ABDOMINAL: Soft. Non-tender. Non-distended. No rebound or guarding. No organomegaly. Normoactive bowel sounds. MUSCULOSKELETAL Normal range of motion at all joints. No bony deformities or tenderness. No CVA tenderness. EXTREMITIES: No cyanosis. No clubbing. No edema. No calf tenderness. SKIN: Warm and dry. Normal capillary refill. No rashes. No jaundice. NEUROLOGICAL: Alert, awake, appropriate. Cranial nerves 2-12 intact. No deficits to light touch in face, upper extremities and lower extremities. No motor deficits in the in face, upper extremities and lower extremities. Normal speech. Gait is normal without ataxia. PSYCHIATRIC: Cooperative. Good eye contact. Appropriate mood and affect. ED Treatment Course - LABORATORY CBC & Chemistry Diagram: 07/08/19 14:12 07/08/19 14:12 Medical Decision Making - Medical Decision Making Dahlia Zaidi is a 39 yo F w a pmh of morbid obesity, HTN, HLD, and NIDDM who presents to the [facility] er with a headache. She reports she has had this headache for weeks and no medications have helped. She states the headache is positional in nature and that when she lies down she feels better but when she sits up or stands up it is worse. The patient states she received a blood patch two days ago and was told by the anesthesiologist to come back two days later if her pain is not gone. Her pain has not resolved and she nor returns requesting another blood patch. She refuses to accept any medications saying that she has tried all of them multiple times and they have not worked. She reports that she received a head CT for this headache which was negative. Vital Signs Temp Pulse Resp BP Pulse Ox 96 H 18 114/77 8 L 07/08/19 12:55 07/08/19 12:55 07/08/19 12:55 07/08/19 12:55 DDx IBNLT: Epidural leak/hematoma, migraine, idiopathic intracranial HTN/ pseudotumor cerebri, complex migraine, tension headache, Plan: Labs, analgesia, IV hydration, anesthesia consult, re-assess. Labs: Unremarkable Anesthesia consult: They are very busy right now and about to go into the OR. They said they cannot do a blood patch for many hours. Patient is refusing to accept and medications at the present time. Disposition: Patient states she plans on going home and returning at another time becuse anesthesia is busy at the present time. Phone number for patient - [phone] Discharge - Discharge Information Problems reviewed: Yes Clinical Impression/Diagnosis: Headache Qualifiers: Headache type: unspecified Headache chronicity pattern: chronic headache Intractability: intractable Qualified Code(s): R51 - Headache Condition: Stable Disposition: HOME - Admission No - Follow up/Referral Referrals: Donis Lara MD [Primary Care Provider] - Chris Marley MD [Staff Physician] - - Patient Discharge Instructions Patient Printed Discharge Instructions: DI for Headache Additional Instructions: You came into the ER with a headache. You refused to take any medications for it. We called anesthesia but they were not available to come and give you a blood patch so you decided to go home and return to the hospital at a different time. Come back to the ER if your headache worsens and you decide you want us to treat you. Print Language: MEXICAN - Post Discharge Activity
[2019-07-08] MEDS ORDERED: KETOROLAC TROMETHAMINE 60 MG/2 ML VIAL IM ONE (13:50)
[2019-07-08] MEDS ORDERED: SODIUM CHLORIDE 0.9% 500 ML INFUS.BAG IV ONE (13:50)
[2019-07-08 14:35] LABS: BASO % 1.1 % (0-2.0); HEMATOCRIT 39.1 % (32.4-45.2); HEMOGLOBIN 12.4 GM/dL (10.7-15.3); LYMPH % 37.4 % (8-40); MCH 25.7 pg (25.7-33.7); MCHC 31.8 g/dl (32.0-36.0); MEAN CELL VOLUME 80.7 fl (80-96); MONO % 6.8 % (3.8-10.2); NEUT % 53.7 % (42.8-82.8); PLATELET COUNT 314 K/MM3 (134-434); RBC 4.85 M/mm3 (3.60-5.2); RDW 15.4 % (11.6-15.6); WHITE BLOOD COUNT 7.3 K/mm3 (4.0-10.0)
[2019-07-08 14:59] LABS: INR 0.97 (0.83-1.09); PROTHROMBIN TIME (PATIENT) 11.4 SEC (9.7-13.0)
[2019-07-08 15:04] LABS: BLOOD UREA NITROGEN 14.9 mg/dL (7-18); CALCIUM 8.8 mg/dL (8.5-10.1); CREATININE 0.7 mg/dL (0.55-1.3)
[2019-07-08] MEDS ORDERED: METOCLOPRAMIDE HCL INJECTION 10 MG/2 ML VIAL ONE (16:34)
[2019-07-08] MEDS ORDERED: KETOROLAC TROMETHAMINE 30 MG/1 ML VIAL IVPUSH ONE (16:52)
[2019-07-08] MEDS ORDERED: KETOROLAC TROMETHAMINE 30 MG/1 ML VIAL ONE (16:53)
--- NOTE | 2019-07-08 16:55 | PDOC ---
Documentation entered by Darshana Lowery SCRIBE, acting as scribe for Mirza Valljeo MD. Mirza Vallejo MD: This documentation has been prepared by the Beverley cooper Adrianna, SCRIBE, under my direction and personally reviewed by me in its entirety. I confirm that the documentation accurately reflects all work, treatment, procedures, and medical decision making performed by me. Attending Attestation - Resident Resident Name: Rj Herrmann - ED Attending Attestation I have performed the following: I have examined & evaluated the patient, The case was reviewed & discussed with the resident, I agree w/resident's findings & plan, Exceptions are as noted - HPI HPI: The patient is a 39 year old female, with a significant PMH of morbid obesity, HTN, HLD, and NIDDM, who presents to the ED for evaluation of headache. The headache is most prominent at the occipital region and is exacerbated with sitting up and improved when lying down. Patient has been seen in the ED 3 times this week for the same complaint as it has not resolved, she has had blood patches that temporarily improves her headache. She notes that any of the medications she was given during her visits have not helped. Pt denies any fever /chills, neck stiffenss, back pain, cp, sob. Pshe endores feeling nausea with nbnb vomiting. Surgical History: D&C Social History: Denies EtOH, tobacco, or illicit drug use PCP: Dr. Donis Blanton - Physicial Exam PE: 07/08/19 16:35 general: no acute distress, well appearing HEENT: eomi, atraumatic neuro: moving all 4 ext spontaneusly and symmetrically, sensation intact, ambulatory with normal gait abd soft nontender 07/08/19 16:36 - Medical Decision Making 07/08/19 16:37 suspect possible migrain vs tension headache vs LP headache pt decline any medi ations, rquests a blood patch - states all prior meds didnt help we discused with anesthesia and they are in the OR and cannot do a blood patch immediately after extensive discussion - pt agred to reglan but states she wants to leave and rturn anothe rtime when anethessia is availble
== END 2019-07-08 17:12 | disposition home or self-care (01) ==
LOC: JER 12:39
PROC: 3E0333Z Introduction of Anti-inflammatory into Peripheral Vein, Percutaneous Approach (ICD-10-PCS; principal; 2019-07-08)
DX: R51 Headache (principal); I10 Essential (primary) hypertension; E78.5 Hyperlipidemia, unspecified; E11.9 Type 2 diabetes mellitus without complications; Z79.84 Long term (current) use of oral hypoglycemic drugs; E66.01 Morbid (severe) obesity due to excess calories; Z68.43 Body mass index [BMI] 50.0-59.9, adult; F17.210 Nicotine dependence, cigarettes, uncomplicated; Z79.82 Long term (current) use of aspirin
CPT/HCPCS: 36415; 80048; 85025; 85610; 86850; 86900; 86901; 96374; 99282-25

== ENCOUNTER 2021-09-04 12:45 | Emergency (ER) | payer OTHER ==
[2021-09-04 13:20] VITALS: BP 152/92; PULSE 97; TEMP 98.1; BMI 50.3
== END 2021-09-04 14:18 | disposition left against medical advice (07) ==
LOC: JER 12:45
DX: M54.50 Low back pain, unspecified (principal); R10.2 Pelvic and perineal pain
CPT/HCPCS: 99283-25

== ENCOUNTER 2021-09-15 17:01 | Emergency (ER) | payer OTHER ==
[2021-09-15 17:19] VITALS: BP 123/82; PULSE 100; TEMP 98.2; BMI 50.8
== END 2021-09-15 21:30 | disposition home or self-care (01) ==
LOC: JERFT 17:01
DX: R10.2 Pelvic and perineal pain (principal)
CPT/HCPCS: 76856-TC; 81003; 84703; 87086; 99284-25

== ENCOUNTER 2022-06-10 13:21 | Emergency (ER) | payer OTHER ==
[2022-06-10 13:37] VITALS: BP 131/84; PULSE 95; RESP 17; TEMP 98.2; BMI 48.4
== END 2022-06-10 15:27 | disposition left against medical advice (07) ==
LOC: JER 13:21
DX: R10.9 Unspecified abdominal pain (principal)
CPT/HCPCS: 99281-25